=== PATIENT | female | born 1990 ===

== ENCOUNTER 2016-08-08 19:50 | Emergency (ER) | payer OTHER ==
[2016-08-08 20:35] LABS: URINE BILIRUBIN NEGATIVE (NEGATIVE); URINE BLOOD 2+ (NEGATIVE); URINE GLUCOSE (UA) 3+ (NEGATIVE); URINE LEUKOCYTE ESTERASE NEGATIVE (NEGATIVE); URINE NITRITE NEGATIVE (NEGATIVE); URINE PROTEIN NEGATIVE (NEGATIVE); URINE UROBILINOGEN NORMAL (0-1 mg/dl)
[2016-08-08 20:36] LABS: URINE APPEARANCE CLEAR; URINE COLOR LIGHT YELLOW
[2016-08-08 20:57] LABS: URINE BACTERIA FEW; URINE EPITHELIAL CELLS 0-1 /hpf; URINE WBC NEG /hpf
== END 2016-08-08 21:45 | disposition home or self-care (01) ==
LOC: ED 19:50
DX: R10.9 Unspecified abdominal pain (principal); Z87.442 Personal history of urinary calculi